=== PATIENT | male | born 1975 | race Caucasian/White ===

== ENCOUNTER 2023-12-28 08:25 | Outpatient (CLI) | payer OTHER, SELFPAY ==
[2023-12-28 09:43] LABS: Alanine Aminotransferase 23 U/L (16-63); Albumin Level 3.6 g/dL (3.4-5.0); Alkaline Phosphatase 75 U/L (46-116); Anion Gap 7 mmol/L (8-16); Aspartate Amino Transferase 29 U/L (15-37); Bilirubin,Total 0.2 mg/dL (0.00-1.00); Blood Urea Nitrogen 8 mg/dL (7-18); Calcium 8.8 mg/dL (8.5-10.1); Carbon Dioxide 32 mmol/L (21-32); Chloride 107 mmol/L (98-108); Estimated Glomerular Filt Rate > 60; Glucose 105 mg/dL (70-99); Osmolality Calculated 300 mOsm/kg (285-295); Potassium 4.3 mmol/L (3.5-5.1); Sodium 146 mmol/L (136-145)
== END 2023-12-28 08:26 | disposition home or self-care (01) ==
LOC: CHSLAB 08:34
DX: L97.522 Non-pressure chronic ulcer of other part of left foot with fat layer exposed (principal)
CPT/HCPCS: 36415; 80053

== ENCOUNTER 2024-06-11 08:10 | Outpatient (CLI) | payer OTHER, SELFPAY ==
[2024-06-11 15:48] LABS: HIV 1 P24 AG Negative (Negative); HIV 1/2 AB Negative (Negative)
== END 2024-06-11 08:11 | disposition home or self-care (01) ==
PROVIDERS: PCP Family Medicine
DX: D49.2 Neoplasm of unspecified behavior of bone, soft tissue, and skin (principal)
CPT/HCPCS: 36415; 87806

== ENCOUNTER 2024-12-13 10:43 | Outpatient (CLI) | payer MEDICAID, SELFPAY ==
[2024-12-13 11:17] LABS: Basophils Absolute Auto 0.02 K/mm3 (0.00-0.10); Basophils Percent Auto 0.5 % (0.0-1.0); Eosinophils Absolute Auto 0.03 K/mm3 (0.02-0.50); Eosinophils Percent Auto 0.7 % (1.0-6.0); Hematocrit 48.1 % (40.0-54.0); Hemoglobin 14.9 g/dL (14.0-18.0); Immature Granulocyte Absolute 0.01 K/mm3 (0.00-0.00); Immature Granulocyte Percent A 0.2 % (0.0-0.0); Lymphocytes Absolute Auto 1.38 K/mm3 (1.10-4.50); Mean Corpuscular Hemoglobin 27.7 pg (27.0-31.0); Mean Corpuscular Volume 89.4 fL (78.0-102.0); Mean Platelet Volume 9.5 fl (8.7-11.0); Monocytes Absolute Auto 0.61 K/mm3 (0.10-0.90); Neutrophils Absolute Auto 2.01 K/mm3 (1.70-7.20); Neutrophils Percent Auto 49.6 % (50.0-70.0); Platelet Count Result 287 K/mm3 (150-420); Red Blood Count 5.38 M/mm3 (4.70-6.10); Red Cell Distribution Width 13.6 % (11.6-14.4); White Blood Count 4.1 K/mm3 (4.8-10.8)
--- OUTSIDE RECORDS SUMMARY | 2024-12-13 12:01 | XMS_ITS | Clinical Summary ---
Author Organization [facility] Address [address] [place] [address] Phone Care Team Providers Care Credit Consultant Name Role Phone SILKE VAZQUEZ MD Primary Care Provider [phone] Reason for Visit and Chief Complaint WOUND CHECK - EST PATIENT Plan of Treatment No Plan of Treatment Recorded Assessments Includes: Assessments from this encounter No Assessments Recorded Medical Equipment - Implanted Devices Includes: Current Devices No Medical Equipment Recorded Medications Administered Includes: Administered Medications from this encounter No Administered Medications Recorded Results Includes: Results discussed during this encounter No Results Recorded For Specified Dates History of Present Illness Includes: History of Present Illness from this encounter No History of Present Illness Recorded Social History No Social History Recorded - Smoking Status Unknown Procedures and Surgical History Includes: Procedures from this encounter Procedures Code Diagnosis Performing Provider Service Location Service Date DEBRIDEMENT SUC Q TISSUE 20 SQ CM < [id number] 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 PJ GORDON DPM [facility] 03/10/2024 Last Documented On 4 7:18AM ; [facility] DEBRIDEMENT SUB Q TISSUE 20 SQ CM < 70734 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 PJ GORDON DPM [facility] 03/10/2024 Last Documented On 4 7:18AM ; [facility] Medical History Includes: Medical History addressed during this encounter No Medical History Recorded Family History Includes: Family History addressed during this encounter No Family History Recorded Review of Systems Includes: Review of Systems from this encounter No Review of Systems Recorded Mental Status Includes: Mental Status from this encounter No Mental Status Recorded Functional Status Includes: Functional Status from this encounter No Functional Status Recorded Physical Exam Includes: Physical Exam from this encounter No Physical Exam Recorded Encounters Encounter Provider Location Date Check-In Time Check- Out Time Diagnosis WOUND CHECK - EST PATIENT PJ GORDON DPM [facility] 4 8:30AM 9:32AM Insurance Includes: Active Insurance Policies Plan Name Member ID Group # Subscriber Relationship Effect elias Dates 1 - [facility] [id number] KELLEY mercado Clinical Notes Includes: Clinical Notes from this encounter No Clinical Notes Recorded
--- OUTSIDE RECORDS SUMMARY | 2024-12-13 12:01 | XMS_ITS ---
Author Organization [facility] Address [address] [place] [address] Phone Care Team Providers Care Safety Administrator Name Role Phone SILKE VAZQUEZ MD Primary Care Provider [phone] Plan of Treatment No Plan of Treatment Recorded Assessments Includes: Assessments for all patient encounters No Assessments Recorded Medical Equipment - Implanted Devices Includes: Current and historical Devices No Medical Equipment Recorded Medications Includes: Current and historical Medications Past Medications on file Mupirocin 2% External Ointment 12/17/2023 - 01/16/2024 Provider: PJ Limon DPM Diagnosis: Apply to left foot daily Last Documented On 3:10PM By Pj Gordon MD ; [facility] Medications Administered Includes: Administered Medications in patient's chart No Administered Medications Recorded Results Includes: Results from 12/13/2023 through 12/13/2024 PATHOLOGY SPECIMEN [facility] La boratory Ordered by PJ GORDON DPMarcus on 01/21/2024 [address], [place], [address] Collected: 01/21/2024 Report ed: 01/27/2024 16:53 tel: Last Documented On 8:34AM ; [facility] Reviewed on 04/04/2024; All test results are final unless otherwise noted. PATH YES None Last Documented On 03/29/2024 8:42PM ; [facility] Note: Responsible Observer: (ARC) PATHOLOGY SPECIMEN See Note None Last Documented On 03/29/2024 8:42PM ; [facility] Note: Performing Lab: [address] [address]Accession #: [id number]/Age/Gender: 1975 (Age: 48) / MProcedure Date: 01/21/2024SPECIMEN(S) RECEIVEDA:Skin, left foot 3:00, punch biopsyB:Skin, left foot 6:00, punch biopsyC:Skin, left foot 9:00, punch biopsyD:Skin, left foot 12:00, punch biopsyFINAL PATHOLOGIC DIAGNOSISA. Skin, left foot 3:00, punch biopsy: - Features suggestive of verruca/wart - No definite evidence of malignancyB. Skin, left foot 6:00, punch biopsy: - Superficially sampled acanthotic epidermal lesion with atypia (seecomment)C. Skin, left foot 9:00, punch biopsy: - Features suggestive of lichen simplex chronicus - No definite evidence of malignancyD. Skin, left foot 12:00, punch biopsy: - Features suggestive of lichen simplex chronicus - No definite evidence of malignancyCOMMENTSB. Sections show superficially sampled acanthotic epidermis with hyperkeratosis,parakeratosis, papillomatosis and cytologic atypia. These findings couldrepresent pseudoepitheliomatous hyperplasia with reactive atypia, however,surface of a verrucous carcinoma cannot be excluded. The diagnosis of verrucouscarcinoma is difficult to establish on small punch biopsies. Hence, if there isclinical concern for verrucous carcinoma, larger incisional/excisional biopsyshould be considered.A-D. A special stain for PASF performed on blocks A1, B1, C1 and D1 is negativefor definite fungal organisms.ELECTRONICALLY VERIFIED BY DAVID MACIAS MD01/27/2024 15:22CLINICAL HISTORYLeft foot skin lesionGROSS DESCRIPTIONThe specimen container(s) and requisition have the same patient name. Receivedin formalin labeled 3 o'clock left foot is a 0.4 cm punch of whitish thorne skinexcised to a depth of 0.6 cm. The specimen is grossly unremarkable. Thespecimen is inked, blue, bisected and entirely submitted in cassette A1.Received in formalin labeled 6 o'clock left foot is a 0.4 cm punch of medina-tanskin excised to a depth of 0.5 cm. The specimen is grossly unremarkable. Thespecimen is inked, green, bisected and entirely submitted in cassette B1.Received in formalin labeled 9 o'clock is a 0.4 cm punch of whitish thorne skinexcised to a depth of 0.5 cm. The specimen is displaying a 0.2 x 0.1 cm scalypapule abutting the nearest margin. The specimen is inked, blue, bisected andentirely submitted in cassette C1.Received in formalin labeled 12 o'clock left foot is a 0.4 cm punch of whitishtan skin excised to a depth of 0.4 cm. The specimen is grossly unremarkable.The specimen is inked, green, bisected and entirely submitted in cassette D1.The tissue is processed as formalin-fixed paraffin-embedded sections.01/25/2024END OF REPORTResponsible Observer: (ARC) Reported Physicians [facility] Kasandra roque Ordered by PJ GORDON DPM on 01/21/[address] [place] [address], [phone] Collected: 01/21/2024 Report ed: 01/27/2024 16:53 tel: Last Documented On 4 8:34AM ; [facility] Reviewed on 04/04/2024; All test results are final unless otherwise noted. 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 OLLIE BRATLETT [facility] 02/18/2024 Last Documented On 4 11:39AM ; [facility] DUPLEX LWR EXT ARTERIES/ART BYPASS GRAFTS; CMPL ADARSH (Professional Comp.) 88822 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 PJ [place] HEIDI OROZCO [facility] 01/21/2024 Last Documented On 4 10:28AM ; [facility] DEBRIDEMENT SUB Q TISSUE 20 SQ CM < 56022 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 12/17/2023 Last Documented On 4 1:53PM ; [facility] DEBRIDEMENT SUC Q TISSUE 20 SQ CM < 20991 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 12/17/2023 Last Documented On 4 1:53PM ; [facility] Medical History Includes: Medical History in patient's chart No Medical History Recorded Family History Includes: Family History in patient's chart No Family History Recorded Review of Systems Review of Systems not supported for this document type No Review of Systems Recorded Mental Status No Mental Status Recorded Functional Status No Functional Status Recorded Physical Exam Physical Exam not supported for this document type No Physical Exam Recorded Encounters Includes: Encounters from 12/13/2023 through 12/13/2024 Encounter Provider Location Date Check-In Time Check- Out Time Diagnosis WOUND CHECK - EST [facility] 9:00AM 9:40AM WOUND CHECK - EST PATIENT [facility] [place] [facility] 4 8:30AM 9:32AM WOUND CHECK - EST PATIENT [facility] [place] [facility] 4 1:00PM 1:37PM WOUND CHECK - EST PATIENT PJ Vinnie GORDON [facility] 4 9:30AM 10:08AM WOUND CHECK - EST PATIENT PJ Vinnie GORDON [facility] 4 1:00PM 1:30PM WOUND CHECK - EST PATIENT PJ GORDON DPM [facility] 4 1:30PM 2:13PM WOUND CHECK - EST PATIENT PJ GORDON DPM [facility] 4 2:30PM 3:24PM Insurance Includes: Active Insurance Policies Plan Name Member ID Group # Subscriber Relationship Effect elias Dates 1 - [facility] [id number] KELLEY mercado Clinical Notes Includes: Signed Clinical Notes starting from 11/21/2022 No Clinical Notes Recorded
--- OUTSIDE RECORDS SUMMARY | 2024-12-13 12:01 | XMS_ITS | Clinical Summary ---
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 PJ GORDON DPM [facility] 02/11/2024 Last Documented On 4 9:49AM ; [facility] Medical History Includes: Medical History addressed during [...] WOUND CHECK - EST PATIENT PJ GORDON [facility] 4 1:00PM 1:37PM Insurance Includes: Active Insurance Policies Plan Name Member ID Group # Subscriber Relationship Effect elias Dates 1 - [facility] [id number] KELLEY mercado Clinical Notes Includes: Clinical Notes from this encounter No Clinical Notes Recorded
--- OUTSIDE RECORDS SUMMARY | 2024-12-13 12:02 | XMS_ITS | Clinical Summary ---
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 PJ GORDON DPM [facility] 03/31/2024 Last Documented On 4 10:01AM ; [facility] Medical History Includes: Medical History addressed during [...] CHECK - EST PATIENT PJ GORDON DPM [facility] 4 9:00AM 9:40AM Insurance Includes: Active Insurance Policies Plan Name Member ID Group # Subscriber Relationship Effect elias Dates 1 - [facility] [id number] KELLEY mercado Clinical Notes Includes: Clinical Notes from this encounter No Clinical Notes Recorded
--- OUTSIDE RECORDS SUMMARY | 2024-12-13 12:02 | XMS_ITS | Clinical Summary ---
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 PJ GORDON DPM [facility] 02/04/2024 Last Documented On 4 11:39AM ; [facility] Medical History Includes: Medical History addressed during [...] CHECK - EST PATIENT PJ GORDON DPM [facility] 4 9:30AM 10:08AM Insurance Includes: Active Insurance Policies Plan Name Member ID Group # Subscriber Relationship Effect elias Dates 1 - [facility] [id number] KELLEY mercado Clinical Notes Includes: Clinical Notes from this encounter No Clinical Notes Recorded
== END 2024-12-13 10:44 | disposition home or self-care (01) ==
PROVIDERS: PCP Family Medicine; Visit Provider Family Medicine
DX: D72.819 Decreased white blood cell count, unspecified (principal)
CPT/HCPCS: 36415; 85025

== ENCOUNTER 2025-01-09 09:19 | Emergency (ER) | payer OTHER, SELFPAY ==
--- NOTE | ~2025-01-09 | CT_ITS ---
CT abdomen pelvis w con Ordering provider: Mack Wu MD History: 49 years Male with . constipation X 2 days, then diarrhea today . Comparison: None. Technique: CT abdomen and pelvis with IV and without oral contrast. Automated exposure control and it erative reconstruction technique were employed. The dose-length product was 159.24 mGy-cm. 100 mL Omn ipaque 350 was given IV. Findings: VISUALIZED LOWER CHEST: Normal. Granuloma in the right lower lobe posteriorly. UPPER ABDOMINAL ORGANS: Liver: Normal. Gallbladder: Cholelithiasis. Spleen: Normal. Stomach/duodenum: Normal. Pancreas: Normal. Adrenals: Normal. Kidneys: Normal. PELVIC ORGANS: The bladder shows thickened wall. Evaluation for cystitis advised. BOWEL AND MESENTERY: Colon: No evidence of diverticulitis. No evidence of appendicitis. Seen in the right side of the colon which may indicate diarrhea. Small Bowel: Normal. No obstruction. Peritoneum/mesentery: No free air or free fluid. No mesenteric lymphadenopathy. RETROPERITONEUM: Normal aorta. No retroperitoneal lymphadenopathy. MUSCULOSKELETAL: Superficial soft tissues: Left inguinal enlarged lymph nodes with the largest measures 1.6 cm. The chase perficial soft tissues are normal. Bones: Age appropriate degenerative changes of the spine. Dextroscoliosis with postoperative changes. IMPRESSION: 1. Fluid in the right side of the colon which may indicate diarrhea. 2. Cholelithiasis 3. No evidence of appendicitis, diverticulitis or intestinal obstruction. 4. Slightly enlarged lymph nodes in the left inguinal area. Reviewed, dictated and finalized at location A.
[2025-01-09 09:20] VITALS: BP 112/92; PULSE 102; RESP 18; TEMP 36.7; O2SAT 96
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
[2025-01-09 09:50] LABS: Hematocrit 50.7 % (40.0-54.0); Hemoglobin 15.8 g/dL (14.0-18.0); Mean Corpuscular HGB Conc 31.2 g/dL (32-36); Mean Corpuscular Hemoglobin 27.7 pg (27.0-31.0); Mean Corpuscular Volume 88.8 fL (78.0-102.0); Mean Platelet Volume 9.4 fl (8.7-11.0); Platelet Count Result 279 K/mm3 (150-420); Red Blood Count 5.71 M/mm3 (4.70-6.10); Red Cell Distribution Width 13.2 % (11.6-14.4); White Blood Count 4.3 K/mm3 (4.8-10.8)
[2025-01-09 10:05] LABS: Alanine Aminotransferase 22 U/L (16-63); Albumin Level 4.3 g/dL (3.4-5.0); Alkaline Phosphatase 114 U/L (46-116); Amylase 51 U/L (25-115); Anion Gap 9 mmol/L (4-12); Aspartate Amino Transferase 21 U/L (15-37); Bilirubin,Total 0.5 mg/dL (0.00-1.00); Blood Urea Nitrogen 14 mg/dL (7-18); Calcium 9.8 mg/dL (8.5-10.1); Carbon Dioxide 29 mmol/L (21-32); Chloride 102 mmol/L (98-108); Estimated CRCL calculation 52 ml/min; Estimated Glomerular Filt Rate > 60; Glucose 108 mg/dL (70-99); Lipase 60 U/L (16-77); Osmolality Calculated 291 mOsm/kg (285-295); Potassium 4.3 mmol/L (3.5-5.1); Sodium 140 mmol/L (136-145); Total Protein 8.5 g/dL (6.4-8.2)
[2025-01-09 10:09] LABS: Lymphocytes Absolute Manual 1.37 K/mm3 (1.1-4.5); Lymphocytes Percent Manual 32 % (18-44); Monocytes Percent Manual 21 % (3-9); Neutrophils Percent Manual 47 % (46-73); Total Cells Counted 100
[2025-01-09 10:18] LABS: Platelet Estimate Adequate (Adequate)
--- OUTSIDE RECORDS SUMMARY | 2025-01-09 10:26 | XMS_ITS | Clinical Summary ---
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 03/31/2024 Last Documented On 4 10:01AM ; [facility] Medical History Includes: Medical History addressed [...] CHECK - EST PATIENT PJ GORDON DPM [facility] 4 9:00AM 9:40AM Insurance Includes: Active Insurance Policies Plan Name Member ID Group # Subscriber Relationship Effect elias Dates 1 - [facility] [id number] KELLEY mercado Clinical Notes Includes: Clinical Notes from this encounter No Clinical Notes Recorded
--- OUTSIDE RECORDS SUMMARY | 2025-01-09 10:26 | XMS_ITS ---
Author Organization [facility] Address [address] [place] [address] Phone Care Team Providers Care Box Stamper Name Role Phone SILKE VAZQUEZ MD Primary Care Provider [phone] Plan of Treatment No Plan of Treatment [...] On 3:10PM By Pj Gordon MD ; [facility] Medications Administered Includes: Administered Medications in patient's chart No Administered Medications Recorded Results Includes: Results from 01/10/2024 through 01/09/2025 PATHOLOGY SPECIMEN [facility] La boratory Ordered by PJ GORDON DPMarcus on 01/21/2024 [address] [facility] [facility], [place], [address] Collected: 01/21/2024 Report ed: 01/27/2024 16:53 tel: Last Documented On 8:34AM ; [facility] Reviewed on 04/04/2024; All test results are final unless otherwise noted. PATH YES None Last Documented On 03/29/2024 8:42PM ; [facility] Note: Responsible Observer: (ARC) PATHOLOGY SPECIMEN See Note None Last Documented On 03/29/2024 8:42PM ; [facility] Note: Performing Lab: [address] [address]Accession #: [id number]/Age/Gender: 1975 (Age: 48) / MProcedure Date: 01/21/2024SPECIMEN(S) [...] sections.01/25/2024END OF REPORTResponsible Observer: (ARC) Reported Physicians [facility] Kasandra roque Ordered by PJ GORDON DPM on 01/21/[address] [place] [address], [id number] Collected: 01/21/2024 Report ed: 01/27/2024 16:53 tel: Last Documented On 4 8:34AM ; [facility] Reviewed on 04/04/2024; All test results are final unless otherwise noted. 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 PJ GORDON DPM [facility] 03/31/2024 Last Documented On 4 10:01AM ; [facility] DEBRIDEMENT OPEN WOUND 20 SQ CM< 16474 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 PJ GORDON DPM [facility] 03/31/2024 Last Documented On 4 10:01AM ; [facility] DEBRIDEMENT SUC Q TISSUE 20 SQ CM < 64891 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 PJ GORDON [facility] 03/10/2024 Last Documented On 4 7:18AM ; [facility] DEBRIDEMENT SUB Q TISSUE 20 SQ CM < 19042 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 PJ GORDON [facility] 03/10/2024 Last Documented On 4 7:18AM ; [facility] NON-INVASIVE PHYS STUDIES UP, COMPLETE ADARSH (Professional Comp., DISTINCT PROCEDURAL SERVICE DIFFERENT SITE) 59494 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 OLLIE BARTLETT [facility] 02/18/2024 Last Documented On 4 11:39AM ; [facility] DUPLEX LWR EXT ARTERIES/ART BYPASS GRAFTS; CMPL ADARSH (Professional Comp.) 53184 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 OLLIE BARTLETT MD [facility] 02/18/2024 Last Documented On 4 11:39AM ; [facility] DEBRIDEMENT OF DEVITALIZED TISSUE FROM WOUND 09056 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 PJ GORDON [facility] 02/11/2024 Last Documented On 4 9:49AM ; [facility] DEBRIDEMENT SUC Q TISSUE 20 SQ CM < 60599 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 PJ GORDON [facility] 02/04/2024 Last Documented On 4 11:39AM ; [facility] DEBRIDEMENT SUB Q TISSUE 20 SQ CM < 07910 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 PJ GORDON [facility] 02/04/2024 Last Documented On 4 11:39AM ; [facility] DEBRIDEMENT SUB Q TISSUE 20 SQ CM < 80568 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 PJ GORDON DPM [facility] 01/21/2024 Last Documented On 4 10:28AM ; [facility] DEBRIDEMENT SUC Q TISSUE 20 SQ CM < 64936 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 [facility] 01/21/2024 Last Documented On 4 10:28AM ; [facility] Medical History Includes: Medical History in patient's [...] Physical Exam Recorded Encounters Includes: Encounters from 01/10/2024 through 01/09/2025 Encounter Provider Location Date Check-In Time Check- Out Time Diagnosis WOUND CHECK - EST PATIENT [facility] 4 9:00AM 9:40AM WOUND CHECK - EST PATIENT [facility] [place] [facility] 4 8:30AM 9:32AM WOUND CHECK - EST PATIENT [facility] [place] [facility] 4 1:00PM 1:37PM WOUND CHECK - EST PATIENT [facility] [place] [facility] 4 9:30AM 10:08AM WOUND CHECK - EST PATIENT [facility] [place] [facility] 4 1:00PM 1:30PM WOUND CHECK - EST PATIENT [facility] [place] [facility] 4 1:30PM 2:13PM Insurance Includes: Active Insurance Policies Plan Name Member ID Group # Subscriber Relationship Effect elias Dates 1 - [facility] [id number] KELLEY mercado Clinical Notes Includes: Signed Clinical Notes starting from 11/21/2022 No Clinical Notes Recorded
--- OUTSIDE RECORDS SUMMARY | 2025-01-09 10:26 | XMS_ITS | Clinical Summary ---
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
--- OUTSIDE RECORDS SUMMARY | 2025-01-09 10:26 | XMS_ITS | Clinical Summary ---
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
--- OUTSIDE RECORDS SUMMARY | 2025-01-09 10:26 | XMS_ITS | Clinical Summary ---
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 PJ GORDON DPM [facility] 03/10/2024 Last Documented On 4 7:18AM ; [facility] Medical History Includes: Medical History addressed during [...] CHECK - EST PATIENT PJ GORDON DPM [facility] 4 8:30AM 9:32AM Insurance Includes: Active Insurance Policies Plan Name Member ID Group # Subscriber Relationship Effect elias Dates 1 - [facility] [id number] KELLEY mercado Clinical Notes Includes: Clinical Notes from this encounter No Clinical Notes Recorded
--- OUTSIDE RECORDS SUMMARY | 2025-01-09 10:26 | XMS_ITS ---
Care Plan - [facility] Created on: January 09, 2025 KELLEY TELLO : 1975 Sex: Male Author Organization [facility] Address [address] [place] [address] Phone Care Team Providers Care Inorganic Chemical Technician Name Role Phone SILKE VAZQUEZ MD Primary Care Provider
--- OUTSIDE RECORDS SUMMARY | 2025-01-09 10:26 | XMS_ITS | Clinical Summary ---
Author Organization [facility] Address [address] [place] [address] Phone Care Team Providers Care Invas Tech Name Role Phone SILKE VAZQUEZ MD Primary Care Provider [phone] Reason for Visit and Chief Complaint WOUND [...] Social History Recorded - Smoking Status Unknown Medical History Includes: Medical History addressed during [...] from this encounter No Physical Exam Recorded Insurance Includes: Active Insurance Policies Plan Name Member ID Group # Subscriber Relationship Effect elias Dates 1 - [facility] [id number] KELLEY mercado Clinical Notes Includes: Clinical Notes from this encounter No Clinical Notes Recorded
--- OUTSIDE RECORDS SUMMARY | 2025-01-09 10:26 | XMS_ITS | Patient Health Record ---
Author Organization [facility] Planning Address [address] [address] [address] [place] [place] [address] Care Team Providers Care Shrimp Trawler Name Role Phone Mark Castillo Primary Care Provider Reason For Referral No Information Medications Medication SIG (Take, Route, Frequency, Duration) Notes Start Date End Date Status Acetaminophen 325 MG 2 tablet as needed Orally every 4 hrs Active buPROPion HCl ER (SR) 200 MG 1 tablet in the morning Orally Once a day for 30 day(s) Active Divalproex Sodium ER 500 mg 3 tablet Orally At bedtime Active MiraLax 17 GM/SCOOP as directed Orally a s needed Active risperiDONE 1 mg 1 tablet Orally twic e daily Active Vancomycin HCl in NaCl 750-0.9 MG/150ML as directed Intravenous every 12 hours Active Daily Gillian - 1 tablet Orally Once a day for 30 day(s) Active Docusate Sodium 100 MG 1 tablet as neede d Orally twice daily Active Bactroban 2% apply to left stump and cover with 4x4 qod Active Naprosyn 250 MG 2 tablet with food o r milk Orally Twice a day Active Zofran 4 MG 4 mg IV q8h prn Ac tive Social History Tobacco Use: Social History Observation Description Date Details (start date - stop date) Current Smoker NA - NA Tobacco Use/Smoking Question Answer Notes Are you a current smoker How often do you smoke cigarettes? every day How many cigarettes a day do you smoke? 11-20 Problems Problem Type SNOMED Code ICD Code Onset Dates Problem Status W/U Status Risk Notes Problem 81465328 Personality disorder (F60.9) Active confirmed Problem [id number] Osteomyelitis o f left foot, unspecified type (M86.9) Active confirmed Plan Of Treatment No Information Insurance Providers Payer Name Payer Address Payer Phone Subscriber Number Group Number Insured Name Patient Relationship to Insured Coverage Start Date Coverage End Date [facility] [employer] [address] [place] [phone] [id number] Alan Foley Self - patient is the insured 0 [facility] FFS [address] [place] [phone] [id number] Alan Foley Self - patient is the insured 0 [facility] Nonbillable [address] [place] [phone] [id number] Alan Foley Self - patient is the insured 0 Medical (General) History Medical History History ICD Code osteomylitis of left foot personality disorder depression chronic neutropenia other conduct d/o scoliosis hx of head trauma hx of MRSA Surgical History Surgery Date(Month/Year) amputation of left toes/foot Hospitalization History Reason Date(Month/Year) osteomylitis 05/19/2020
--- OUTSIDE RECORDS SUMMARY | 2025-01-09 11:31 | XMS_ITS | Clinical Summary ---
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
--- OUTSIDE RECORDS SUMMARY | 2025-01-09 11:31 | XMS_ITS | Clinical Summary ---
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
--- OUTSIDE RECORDS SUMMARY | 2025-01-09 11:32 | XMS_ITS ---
Author Organization [facility] Address [address] [place] [address] Phone Care Team Providers Care Apartment Rental Clerk Name Role Phone SILKE VAZQUEZ MD Primary Care Provider [phone] Plan of Treatment No Plan of Treatment [...] On 3:10PM By Pj Gordon MD ; [facility] Medications Administered Includes: Administered Medications in patient's chart No Administered Medications Recorded Results Includes: Results from 01/10/2024 through 01/09/2025 PATHOLOGY SPECIMEN [facility] La boratory Ordered by PJ GORDON DPMarcus on 01/21/2024 [address] [facility] [facility], [place], [address] Collected: 01/21/2024 Report ed: 01/27/2024 16:53 tel: Last Documented On 8:34AM ; [facility] Reviewed on 04/04/2024; All test results are final unless otherwise noted. PATH YES None Last Documented On 03/29/2024 8:42PM ; [facility] Note: Responsible Observer: (ARC) PATHOLOGY SPECIMEN See Note None Last Documented On 03/29/2024 8:42PM ; [facility] Note: Performing Lab: [address] [address]Accession #: [id number]/Age/Gender: 1975 (Age: 48) / MProcedure Date: 01/21/2024SPECIMEN(S) [...] sections.01/25/2024END OF REPORTResponsible Observer: (ARC) Reported Physicians [facility] Kasandra orque Ordered by PJ GORDON DPM on 01/21/[address] [place] [address], [id number] Collected: 01/21/2024 Report ed: 01/27/2024 16:53 tel: Last Documented On 4 8:34AM ; [facility] Reviewed on 04/04/2024; All test results are final unless otherwise noted. 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 PJ GORDON DPM [facility] WND 03/31/2024 Last Documented On 4 10:01AM ; [facility] DEBRIDEMENT SUC Q TISSUE 20 SQ CM < 16728 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 PJ GORDON [facility] 03/10/2024 Last Documented On 4 7:18AM ; [facility] DEBRIDEMENT SUB Q TISSUE 20 SQ CM < 05970 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 PJ GORDON [facility] WND 03/10/2024 Last Documented On 4 7:18AM ; [facility] NON-INVASIVE PHYS STUDIES UP, COMPLETE ADARSH (Professional Comp., DISTINCT PROCEDURAL SERVICE DIFFERENT SITE) 87462 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 OLLIE BARTLETT [facility] 02/18/2024 Last Documented On 4 11:39AM ; [facility] DUPLEX LWR EXT ARTERIES/ART BYPASS GRAFTS; CMPL ADARSH (Professional Comp.) 13059 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 OLLIE BARTLETT MD [facility] OP H[facility] 02/18/2024 Last Documented On 4 11:39AM ; [facility] DEBRIDEMENT OF DEVITALIZED TISSUE FROM WOUND 77753 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 PJ GORDON [facility] WND 02/11/2024 Last Documented On 4 9:49AM ; [facility] DEBRIDEMENT SUC Q TISSUE 20 SQ CM < 26005 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 PJ GORDON [facility] 02/04/2024 Last Documented On 4 11:39AM ; [facility] DEBRIDEMENT SUB Q TISSUE 20 SQ CM < 03111 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 PJ GORDON [facility] WND 02/04/2024 Last Documented On 4 11:39AM ; [facility] DEBRIDEMENT SUB Q TISSUE 20 SQ CM < 71364 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 PJ GORDON DPM [facility]- WND 01/21/2024 Last Documented On 4 10:28AM ; [facility] DEBRIDEMENT SUC Q TISSUE 20 SQ CM < 79084 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 [facility] 01/21/2024 Last Documented On 4 10:28AM ; [facility] Medical History Includes: Medical History in [...] CHECK - EST PATIENT [facility] 4 9:00AM 9:40AM WOUND CHECK - EST PATIENT [facility] 4 8:30AM 9:32AM WOUND CHECK - EST PATIENT [facility] 4 1:00PM 1:37PM WOUND CHECK - EST PATIENT [facility] 4 9:30AM 10:08AM WOUND CHECK - EST PATIENT [facility] [place] [facility] 4 1:00PM 1:30PM WOUND CHECK - EST PATIENT [facility] [place] [facility] 4 1:30PM 2:13PM Insurance Includes: Active Insurance Policies Plan Name Member ID Group # Subscriber Relationship Effect elias Dates 1 - [facility] [id number] KELLEY mercado Clinical Notes Includes: Signed Clinical Notes starting from 11/21/2022 No Clinical Notes Recorded
--- OUTSIDE RECORDS SUMMARY | 2025-01-09 11:32 | XMS_ITS | Clinical Summary ---
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
--- OUTSIDE RECORDS SUMMARY | 2025-01-09 11:32 | XMS_ITS ---
Care Plan - [facility] Created on: January 09, 2025 KELLEY TELLO : 1975 Sex: Male Author Organization [facility] Address [address] [place] [address] Phone Care Team Providers Care Secret Service Agent Name Role Phone SILKE VAZQUEZ MD Primary Care Provider
--- OUTSIDE RECORDS SUMMARY | 2025-01-09 11:32 | XMS_ITS | Clinical Summary ---
Author Organization [facility] Address [address] [place] [address] Phone Care Team Providers Care Computer Application Developer Name Role Phone SILKE VAZQUEZ MD Primary Care Provider [phone] Reason for Visit and Chief Complaint WOUND [...] Subscriber Relationship Effect elias Dates 1 - [facility] [id number] KELLEY mercado Clinical Notes Includes: Clinical Notes from this encounter No Clinical Notes Recorded
--- OUTSIDE RECORDS SUMMARY | 2025-01-09 11:32 | XMS_ITS | Clinical Summary ---
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
[2025-01-09 13:23] LABS: Add Urine Microscopic? NO; Appearance Urine Clear (Clear); Bilirubin Urine Negative (Negative); Blood Urine Negative (Negative); Color Urine Light Yellow (Yellow); Glucose Urine UA Negative (Negative); Ketones Urine Negative (Negative); Leukocyte Esterase Ur Negative (Negative); Nitrate Urine Negative (Negative); Protein Urine Negative (Negative); Specific Grav Ur <= 1.005 (1.010-1.020); Urobilinogen Urine 0.2 mg/dL (0.2-1.0)
[2025-01-09 13:40] VITALS: BP 109/67; PULSE 92; RESP 20; TEMP 36.6; O2SAT 97
== END 2025-01-09 13:46 | disposition home or self-care (01) ==
PROVIDERS: Emergency Provider Emergency Medicine; PCP Family Medicine
DX: R10.9 Unspecified abdominal pain (principal); K59.00 Constipation, unspecified; Z79.899 Other long term (current) drug therapy
CPT/HCPCS: 36415; 74177; 80053; 81003; 82150; 83605; 83690; 85025; 99283; Q9967

== ENCOUNTER 2025-08-04 12:49 | Emergency (ER) | payer OTHER, SELFPAY ==
--- NOTE | ~2025-08-04 | XR_ITS ---
EXAMINATION: XR foot LT min 3V DATE: 08/04/2025 13:20 INDICATION: Pain/bleeding and drainage from foot. TECHNIQUE: 4 images of the left foot were obtained. COMPARISON: None. FINDINGS: Amputation of all 5 toes and 5 metatarsals. Bony irregularity of the anterior aspects of the remaining tarsal bones with adjacent soft tissue swelling. Bones appear osteopenic. No convincing displaced fracture identified. Possible soft tissue calcification adjacent to the distal left fibula. Other etiologies are possible. IMPRESSION: 1. Bony irregularity of the anterior aspects of the remaining tarsal bones with adjacent soft tissue swelling. Osteomyelitis is suspected. An MRI with and without contrast is recommended for further assessment. Reviewed, dictated and finalized at location [facility]. IMPRESSION: 1. Bony irregularity of the anterior aspects of the remaining tarsal bones with adjacent soft tissue swelling. Osteomyelitis is suspected. An MRI with and wit hout contrast is recommended for further assessment.
[2025-08-04 12:49] VITALS: BP 135/95; PULSE 102; RESP 18; TEMP 36.2; O2SAT 99
--- OUTSIDE RECORDS SUMMARY | 2025-08-04 12:57 | XMS_ITS | Patient Health Record ---
[facility] Address [address] [address] [address] [place] [address] Care Team Providers Care Mobile Tester Name Role Phone Mark Castillo Primary Care Provider [phone] Reason For Referral No Information Medications Medication SIG (Take, Route, Frequency, Duration) Notes Start Date End Date Status Acetaminophen 325 MG Tablet 2 tablet as needed Orally every 4 hrs Active buPROPion HCl ER (SR) 200 MG Tablet Extended Release 12 Hour 1 tablet in the morning Orally Once a day; Duration: 30 day(s) Active Divalproex Sodium ER 500 mg Tablet Extended Release 24 Hour 3 tablet Orally At bedtime Active MiraLax 17 GM/SCOOP Powder as directed Orally as needed Active risperiDONE 1 mg Tablet 1 tablet Orally twice daily Active Vancomycin HCl in NaCl 750-0.9 MG/150ML Solution as directed Intravenous every 12 hours Active Daily Gillian - Tablet 1 tablet Orally Once a day; Duration: 30 day(s) Active Docusate Sodium 100 MG Tablet 1 tablet as needed Orally twice daily Active Bactroban 2% apply to left stump and cover with 4x4 qod Active Naprosyn 250 MG Tablet 2 tablet with eh d or milk Orally Twice a day Active Zofran 4 MG Tablet 4 mg IV q8h prn Active Social History Tobacco Use: Social History Observation Description Date Details (start date - stop date) Current Smoker NA - NA Social History Tobacco Use: Social Info Question Answer Notes Tobacco Use/Smoking Are you a current smoker How often do you smoke cigarettes? every day How many cigarettes a day do you smoke? 11-20 Problems Problem Type SNOMED Code ICD Code Onset Dates Problem Status W/U Status Risk Notes Problem Personality disorder (41865969) Personality disorder (F60.9) Active confirmed Problem Osteomyelitis (22774434) Osteomyelitis of left foot, unspecified type (M86.9) Active confirmed Plan Of Treatment No Information Insurance Providers Payer Name Payer Address Payer Phone Subscriber Number Group Number Insured Name Patient Relationship to Insured Coverage Start Date Coverage End Date [facility] [address] [place] [phone] [id number] Alan Foley Self - patient is the insured 0 [facility] [employer] [address] [place] [address] [id number] Alan Foley Self - patient is the insured 0 [facility] [employer]billable [address] [place] [address] [id number] Alan Foley Self - patient is the insured 0 Medical (General) History Medical History History ICD Code osteomylitis of left foot personality disorder depression chronic neutropenia other conduct d/o scoliosis hx of head trauma hx of MRSA Surgical History Surgery Date(Month/Year) amputation of left toes/foot Hospitalization History Reason Date(Month/Year) osteomylitis 05/19/2020
--- NOTE | 2025-08-04 13:06 | ED_ITS ---
HPI - Wound/Laceration General Chief Complaint: Wound/Laceration Stated Complaint: right foot infection Time Seen by Provider: 08/04/25 13:06 Source: patient Mode of arrival: ambulatory Limitations: no limitations History of Present Illness HPI narrative: Patient is a 50-year-old male with a left partial foot amputation a few years ago and continued issues since surgery. Specifically 3 days ago he was at another hospital doing wound care and they debrided the area to removed soft tissue and skin and now he is having continued bleeding and purulence discharge. A few years ago he stepped on a cellphone turbinated bone grinder that punctured his left foot and led to a partial amputation. Onset (ago): day(s) (Three) Location: other (Left foot partial amputee) Place: home Patient tetanus UTD: Yes Context: other (No definite injury recent debridement 3 days ago) Associated symptoms: pain Treatments prior to arrival: bandage Related Data Home Medications ?Medication ?Instructions ?Recorded ?Confirmed ?Last Taken ?Type acetaminophen 325 mg tablet 650 mg PO Q6H PRN pain 08/26 Unknown History bupropion HCl 200 mg tablet,12 hr 200 mg PO Q12H 01/09 Unknown History sustained-release clobetasol 0.05 % topical cream 1 applic topical DAILY 01/09/25 Unknown History docusate sodium 100 mg tablet (DOK) 100 mg PO BID 12/31 Unknown History multivitamin 1 tablet PO DAILY 01/09/25 Unknown History paroxetine HCl 20 mg tablet 20 mg PO DAILY 01/09/25 U nknown History polyethylene glycol 3350 17 17 g PO DAILY PRN constipa tion 01/09/25 Unknown History gram/dose oral powder ziprasidone HCl 20 mg capsule 20 mg PO QAM 01/09/25 U nknown History ziprasidone HCl 40 mg capsule 40 mg PO QPM 01/09/25 U nknown History Allergies Allergy/AdvReac Type Severity Reaction Status Date / Time tuberculin, purified protein Allergy Mild Unknown Verified 08/04/25 12:57 deriva (From Tubersol) Review of Systems 2 Review of Systems: All systems reviewed & are unremarkable except as noted in HPI and below Constitutional: Constitutional: Reports no additional constitutional complaints Eyes: Eyes: Reports no additional eye complaints ENT: Reports system reviewed and no additional complaints, except as documented Cardiovascular: Cardiovascular: Reports no additional cardiovascular complaints Respiratory: Respiratory: Reports no additional respiratory complaints Gastrointestinal: Gastrointestinal: Reports no additional gastrointestinal complaints Genitourinary: Genitourinary: Reports no additional male genitourinary complaints Musculoskeletal: Musculoskeletal: Reports no additional musculoskeletal complaints Integumentary/Breasts: Skin/Breast: Reports system reviewed and no additional complaints, except as docu Neurologic: Reports system reviewed and no additional complaints, except as documented Psychiatric: Psychiatric: Reports no additional psychiatric complaints Endocrine: Endocrine: Reports no additional endocrine complaints Hematologic/Lymphatic: Hematologic/Lymphatic: Reports no additional hematologic/lymphatic complaints Allergic/Immunologic: Allergic/Immunologic: Reports no additional allergic/immunologic complaints Exam 2 Const: General: healthy appearing Nutritional Appearance: well nourished Orientation/consciousness: patient oriented x3 HENMT: Head: normal to inspection Ears: external ears normal F stefanie/Nose/Sinus: Normal external nose present Eyes: Conjunctivae: conjunctivae normal Pupils: Equal, round and reactive pupils present EOM: EOMs intact bilaterally Neck: Neck: normal visual inspection Chest: Chest palpation & inspection: normal inspection of the chest Resp: Effort & Inspection: normal respiratory effort and not labored A uscultation: clear to auscultation bilaterally and no crackles Cardio: Rate: regular rate Rhythm: regular rhythm Heart sounds: no murmurs GI: Inspection: non-distended GI Palp: Yes Soft to palpation and No Tenderness to palpation present (GI) Auscultation: normal bowel sounds Back/Spine/Pelvis: Back: no CVA tenderness Skin: General skin exam: normal color Rashes: no rashes Wounds: no wounds Neuro: General: patient oriented x3, moves all extremities and no meningeal signs Extrem: General: abnormal to inspection, no clubbing, cyanosis or edema and no pedal edema Other: Left foot partial amputation from a few years ago is now having some bleeding after debridement and pus drainage with signs of early infection Psych: Mental Status: mental status grossly normal Affect: normal affect Attitude: cooperative Other: Baseline Course Vital Signs Vital signs: Vital Signs Temperature 36.2 C L 08/04/25 12:49 Pulse Rate 102 H 08/04/25 12:49 Respiratory Rate 18 08/04/25 12:49 Blood Pressure 135/95 H 08/04/25 12:49 Pulse Oximetry 99 08/04/25 12:49 Oxygen Delivery Room Air 08/04/25 12:49 Temperature 36.2 C L 08/04/25 12:49 Pulse Rate 84 08/04/25 14:03 Respiratory Rate 16 08/04/25 14:03 Blood Pressure 135/90 08/04/25 14:03 Pulse Oximetry 99 08/04/25 14:03 Oxygen Delivery Room Air 08/04/25 14:03 MDM - Wound/Laceration MDM Narrative Medical decision making narrative: Patient is a 50-year-old male with a left foot partial amputation having bleeding and pus drainage and odor for the past 3 days. He had debridement 3 days ago. X-ray. Tetanus up-to-date. Labs. Cultures. Patient will be transferred back to [place] where he had wound care in the past 3 days for orthopedic surgery/Podiatry evaluation and treatment for osteomyelitis of the left foot. Lab Data Attestation: I reviewed the patient's lab results. 08/04/25 13:27 08/04/25 13:27 Labs: Lab Results 08/04/25 08/04/25 08/04/25 Range/Units 13:12 13:27 13:28 WBC 5.8 (4.8-10.8) K/mm3 RBC 4.75 (4.70-6.10) M/mm3 Hgb 13.2 L (14.0-18.0) g/dL Hct 42.3 (40.0-54.0) % MCV 89.1 (78.0-102.0) fL MCH 27.8 (27.0-31.0) pg MCHC 31.2 L (32-36) g/dL RDW 12.9 (11.6-14.4) % Plt Count 277 (150-420) K/mm3 MPV 8.9 (8.7-11.0) fl Immature Gran % (Auto) 0.2 H (0.0-0.0) % Neut % (Auto) 66.9 (50.0-70.0) % Lymph % (Auto) 20.8 (18.0-42.0) % [place] % (Auto) 10.2 (2.0-11.0) % Eos % (Auto) 1.6 (1.0-6.0) % Baso % (Auto) 0.3 (0.0-1.0) % Lymph # (Auto) 1.20 (1.10-4.50) K/mm3 [place] # (Auto) 0.59 (0.10-0.90) K/mm3 Eos # (Auto) 0.09 (0.02-0.50) K/mm3 Baso # (Auto) 0.02 (0.00-0.10) K/mm3 Abs Immat Gran (auto) 0.01 H (0.00-0.00) K/mm3 Absolute Neuts (auto) 3.86 (1.70-7.20) K/mm3 Absolute Nucleated RBC 0.00 (0.00-0.00) K/mm3 Nucleated RBC % 0.0 (0-0.0) % ESR Pending PT 10.4 (9.50-12.1) Seconds INR 0.9 APTT 29.9 (23.9-30.70) Sec Sodium 142 (137-145) mmol/L Potassium 3.9 (3.4-5.0) mmol/L Chloride 102 (98-107) mmol/L Carbon Dioxide 31 H (22-30) mmol/L Anion Gap 9 (4-12) mmol/L BUN 5 L (9-20) mg/dL Creatinine 0.69 L (0.7-1.3) mg/dL Estim Creat Clear Calc 82 ml/min Estimated GFR > 60 (59 - ) Glucose 111 H (65-110) mg/dL Calculated Osmolality 292 (285-295) mOsm/kg Lactic Acid 1.8 (0.4-2.0) mmol/L Calcium 9.3 (8.4-10.2) mg/dL Total Bilirubin 0.3 (0.2-1.3) mg/dL AST 25 (17-59) U/L ALT 16 (6-50) U/L Alkaline Phosphatase 89 (38-126) U/L C-Reactive Protein 3.4 H (<1.0) mg/dL Total Protein 9.2 H (6.3-8.2) g/dL Albumin 4.3 (3.5-5.1) g/dL Imaging Data Attestation: I personally reviewed and interpreted this imaging study as follows: Radiologist's impression: X-ray left foot shows IMPRESSION: 1. Bony irregularity of the anterior aspects of the remaining tarsal bones with adjacent soft tissue swelling. Osteomyelitis is suspected. An MRI with and without contrast is recommended for further assessment. Discharge Plan Discharge Clinical Impression: Acute osteomyelitis of left ankle or foot Patient Disposition: Acute Care Hospital Condition: Stable Patient Language: Iranian Prescriptions: No Action multivitamin Tablet 1 tablet PO DAILY acetaminophen 325 mg tablet 650 mg PO Q6H PRN (Reason: pain) clobetasol 0.05 % cream 1 applic TOPICAL DAILY ziprasidone HCl 20 mg capsule 20 mg PO QAM paroxetine HCl 20 mg tablet 20 mg PO DAILY ziprasidone HCl 40 mg capsule 40 mg PO QPM polyethylene glycol 3350 17 gram/dose powder 17 g PO DAILY PRN (Reason: constipation) docusate sodium [DOK] 100 mg tablet 100 mg PO BID bupropion HCl 200 mg tablet sustained-release 12 hr 200 mg PO Q12H Follow-up/Referrals: Desmond Perez MD [Primary Care Provider, Internal Medicine] Time of Disposition: 15:35
[2025-08-04 13:34] LABS: Hematocrit 42.3 % (40.0-54.0); Hemoglobin 13.2 g/dL (14.0-18.0); Immature Granulocyte Percent A 0.2 % (0.0-0.0); Lymphocytes Absolute Auto 1.20 K/mm3 (1.10-4.50); Mean Corpuscular HGB Conc 31.2 g/dL (32-36); Mean Corpuscular Hemoglobin 27.8 pg (27.0-31.0); Mean Corpuscular Volume 89.1 fL (78.0-102.0); Nucleated Red Blood Cells Absolute Auto 0.00 K/mm3 (0.00-0.00); Nucleated Red Blood Cells Perc 0.0 % (0-0.0); Platelet Count Result 277 K/mm3 (150-420); Red Blood Count 4.75 M/mm3 (4.70-6.10); White Blood Count 5.8 K/mm3 (4.8-10.8)
--- NOTE | 2025-08-04 13:37 | WNDPHOTO ---
PHOTO ONLY - See Nursing Notes and/ or assessments for documentation.
[2025-08-04 13:49] LABS: Alanine Aminotransferase 16 U/L (6-50); Albumin Level 4.3 g/dL (3.5-5.1); Alkaline Phosphatase 89 U/L (38-126); Anion Gap 9 mmol/L (4-12); Aspartate Amino Transferase 25 U/L (17-59); Bilirubin,Total 0.3 mg/dL (0.2-1.3); Blood Urea Nitrogen 5 mg/dL (9-20); CRP 3.4 mg/dL (<1.0); Calcium 9.3 mg/dL (8.4-10.2); Carbon Dioxide 31 mmol/L (22-30); Chloride 102 mmol/L (98-107); Estimated CRCL calculation 82 ml/min; Estimated Glomerular Filt Rate > 60; Glucose 111 mg/dL (65-110); INR 0.9; Osmolality Calculated 292 mOsm/kg (285-295); Partial Thromboplastin Time 29.9 Sec (23.9-30.70); Potassium 3.9 mmol/L (3.4-5.0); Prothrombin Time 10.4 Seconds (9.50-12.1); Sodium 142 mmol/L (137-145); Total Protein 9.2 g/dL (6.3-8.2)
[2025-08-04 14:03] VITALS: BP 135/90; PULSE 84; RESP 16; O2SAT 99
[2025-08-04 15:00] VITALS: BP 131/94; PULSE 79; RESP 18; O2SAT 100
[2025-08-04] MEDS: CEFEPIME 2 GM in SODIUM CHLORIDE 0.9% IV 50 ML 100 ML IVPB (15:31)
[2025-08-04 15:59] VITALS: BP 129/96; PULSE 91; RESP 16; O2SAT 100
[2025-08-04 16:20] VITALS: BP 148/89; PULSE 79; RESP 18; TEMP 36.4; O2SAT 99
--- NOTE | 2025-08-06 12:29 | PC.NURSE ---
lt foot culture gram stain - final moderate gram positive. awaiting final bacterial culture.
--- NOTE | 2025-08-06 12:32 | PC.NURSE ---
[place] in [place]. transferred to [facility] , spoke with kiara, report faxed.
--- NOTE | 2025-08-07 13:08 | PC.NURSE ---
Preliminary blood culture report; no growth in 24 hours.
--- NOTE | 2025-08-08 14:44 | PC.NURSE ---
Culture reprot's sent to [facility], Fax number [phone]
--- NOTE | 2025-08-11 14:41 | PC.NURSE ---
blood culture, final, no growth
== END 2025-08-04 16:20 | disposition short-term general hospital (02) ==
PROVIDERS: Emergency Provider Emergency Medicine; PCP Family Medicine
DX: M86.172 Other acute osteomyelitis, left ankle and foot (principal)
CPT/HCPCS: 36415; 73630; 80053; 83605; 85025; 85610; 85652; 85730; 86140; 87040; 87070; 87186; 87205; 96365; 99285; J0692